=== PATIENT | female | born 1950 | race Caucasian/White ===

== ENCOUNTER → 2019-12-03 | Outpatient (CLI) | payer MEDICARE, OTHER ==
[~2019-12-03] MED LIST: ACET325 PO; AMIT10 PO; AMLO5 PO; ASPI325 PO; ASPI81EC PO; BUSP15 PO; CLOP75 PO; Co Q-10300 MG PO; FISH1000; GLIM2 PO; HYDACE5 PO; HYDCHL25 PO; Hydrocodone-Ap1 EA23 PO; LOSA50 PO; LOSHYD PO; METF500 PO; METF850 PO; METO100ER PO; METO50 PO; Norco 5-325 Ta1 EACH PO; OMEPRAZOLE MAGN20 MG PO; POTA10T PO; Plavix75 MG PO; Prednisone20 MG PO; RANI150 PO; ROSU10TA PO; ROSU5 PO; Red Yeast Rice600 MG PO; SITA100T2 PO; SUCR1 PO; TRAZ50 PO; Tizanidine HCl2 MG PO; ZOLP10 PO; ZOLP12.5 PO; Zithromax250 MG PO; Zofran Odt4 MG PO
[2019-12-03 10:24] LABS: BASOPHILS ABSOLUTE AUTO 0.05 K/mm3 (0.00-0.23); BASOPHILS PERCENT AUTO 0 % (0-2); EOSINOPHILS ABSOLUTE AUTO 0.07 K/mm3 (0.00-0.68); EOSINOPHILS PERCENT AUTO 1 % (0-6); Hematocrit 40.4 % (33.0-51.0); Hemoglobin 13.4 g/dL (11.5-16.0); IMMATURE GRAN ABSOLUTE AUTO 0.05 K/mm3 (0.00-0.10); IMMATURE GRAN PERCENT AUTO 0 % (0-1); LYMPHOCYTES ABSOLUTE AUTO 2.58 K/mm3 (0.84-5.20); LYMPHOCYTES PERCENT AUTO 21 % (21-46); MONOCYTES ABSOLUTE AUTO 0.83 K/mm3 (0.16-1.47); MONOCYTES PERCENT AUTO 7 % (4-13); Mean Corpuscular HGB Conc 33.2 g/dL (31.5-36.5); Mean Corpuscular Volume 84 fL (80-100); Mean Platelet Volume 11.8 fL (9.1-12.4); NEUTROPHILS ABSOLUTE AUTO 8.85 K/mm3 (1.96-9.15); NEUTROPHILS PERCENT AUTO 71 % (41-73); Platelet Count 280 K/mm3 (150-400); RDW Coefficient Variation 13.2 % (11.7-14.2); RDW Standard Deviation 40.2 fL (35.1-46.3); Red Blood Cell Count 4.79 M/mm3 (3.80-5.20); White Blood Cell Count 12.43 K/mm3 (4.00-11.30)
[2019-12-03 10:43] LABS: Alanine Aminotransfer (ALT/SGP 26 U/L (12-78); Albumin, Blood 4.5 g/dL (3.4-5.0); Albumin/Globulin Ratio 1.1 (0.8-1.8); Alk Phos 110 U/L (40-126); Anion Gap 11 mmol/L (6-16); Aspartate Aminotrans (AST/SGOT 22 U/L (12-37); Blood Urea Nitrogen 19 mg/dL (8-24); Bun/Creatinine Ratio 17.9 (12.0-20.0); CO2, Blood 29 mmol/L (21-32); Calcium, Blood 9.5 mg/dL (8.5-10.1); Chloride, Blood 95 mmol/L (98-108); Creatinine, Blood 1.06 mg/dL (0.40-1.00); Glomerular Filtration Rate 51 (60-); Glucose, Blood 223 mg/dL (70-99); Magnesium, Blood 1.5 mg/dL (1.6-2.4); Sodium, Blood 135 mmol/L (136-145); Thyroid Stimulating Hormone 1.185 uIU/mL (0.360-4.800); Total Protein, Blood 8.5 g/dL (6.4-8.2)
[2019-12-03 10:44] LABS: Troponin I <0.017 ng/mL (0.000-0.040)
== END | disposition home or self-care (01) ==
LOC: LAB SHORT 10:16 → LAB EV 10:16
PROVIDERS: Physician Assistant Medical
DX: R06.00 Dyspnea, unspecified (principal)
CPT/HCPCS: 80053; 83735; 84443; 84484; 85025

== ENCOUNTER 2020-07-10 12:04 | Day surgery (SDC) | payer MEDICARE, OTHER ==
[~2020-07-10] VITALS: Ht 167.6 cm; Wt 76.3 kg
[~2020-07-10 12:04] MED LIST changes: +ACET500 PO; +ALBU90OI INH; +ALPR.25 PO; +EUTHYROX75 MCG PO; +Hair, Skin & N1 EACH PO; +Isosorbide Mono30 MG PO; +Lopressor 50 mg50 MG PO; +NITR.4SL SL; +OMEP20ER PO; +Oretic 25 mg Ta25 MG PO; +SERT25 PO
--- NOTE | 2020-07-10 12:38 | NUR ---
07/10/20 Helene8 Jerilyn Madera 1 TRY RIGHT HAND VALVE
--- NOTE | 2020-07-10 15:25 | NUR ---
07/10/20 1525 Irais Kaye USED NACL 10ML FOR POLYP REMOVAL. PT. GIVEN ZOFRAN FOR RETCHING, PT. WAS SUCTIONED FOR SCANT CLEAR SECRETIONS. CHIN LIFT NEEDED FOR AIRWAY DURING PROCEDURE ESPECIALLY WHEN PT. WAS SUPINE. PT.'S DENTURES CAME OUT DURING PROCEDURE, PLACED IN A BOWL & THEN GIVEN BACK TO PT. WHEN SHE WOKE UP. DR. FERRARO IN ROOM. [place] [facility] [place].
== END 2020-07-10 15:21 | disposition home or self-care (01) ==
LOC: ORSCSDS 12:04
PROVIDERS: Internal Medicine Gastroenterology
PROC: 0DBK8ZX Excision of Ascending Colon, Via Natural or Artificial Opening Endoscopic, Diagnostic (ICD-10-PCS; principal; 2020-07-10 13:15)
PROC: 0DBL8ZX Excision of Transverse Colon, Via Natural or Artificial Opening Endoscopic, Diagnostic (ICD-10-PCS; principal; 2020-07-10 13:15)
DX: R10.9 Unspecified abdominal pain (principal); D12.3 Benign neoplasm of transverse colon; D12.2 Benign neoplasm of ascending colon; K57.30 Diverticulosis of large intestine without perforation or abscess without bleeding; K64.8 Other hemorrhoids; E11.9 Type 2 diabetes mellitus without complications; E78.5 Hyperlipidemia, unspecified; E03.9 Hypothyroidism, unspecified; N18.9 Chronic kidney disease, unspecified; K21.9 Gastro-esophageal reflux disease without esophagitis; Z79.899 Other long term (current) drug therapy
CPT/HCPCS: 82947; 88305; J2405; J2704; J7120

== ENCOUNTER 2023-02-21 00:35 | Inpatient (IN) | payer MEDICARE ==
[~2023-02-21] VITALS: Ht 160 cm; Wt 72.1 kg
[2023-02-21 01:52] LABS: BASOPHILS ABSOLUTE AUTO 0.01 K/mm3 (0.00-0.23); BASOPHILS PERCENT AUTO 0 % (0-2); EOSINOPHILS ABSOLUTE AUTO 0.03 K/mm3 (0.00-0.68); EOSINOPHILS PERCENT AUTO 1 % (0-6); Hematocrit 34.5 % (33.0-51.0); Hemoglobin 12.3 g/dL (11.5-16.0); IMMATURE GRAN ABSOLUTE AUTO 0.02 K/mm3 (0.00-0.10); IMMATURE GRAN PERCENT AUTO 1 % (0-1); LYMPHOCYTES ABSOLUTE AUTO 1.63 K/mm3 (0.84-5.20); LYMPHOCYTES PERCENT AUTO 39 % (21-46); MONOCYTES ABSOLUTE AUTO 0.76 K/mm3 (0.16-1.47); MONOCYTES PERCENT AUTO 18 % (4-13); Mean Corpuscular HGB 28.7 pg (26.0-34.0); Mean Corpuscular HGB Conc 35.7 g/dL (31.5-36.5); Mean Corpuscular Volume 80 fL (80-100); Mean Platelet Volume 11.6 fL (9.1-12.4); NEUTROPHILS ABSOLUTE AUTO 1.72 K/mm3 (1.96-9.15); NEUTROPHILS PERCENT AUTO 41 % (41-73); Platelet Count 233 K/mm3 (150-400); RDW Coefficient Variation 12.3 % (11.7-14.2); RDW Standard Deviation 35.8 fL (35.1-46.3); Red Blood Cell Count 4.29 M/mm3 (3.80-5.20); White Blood Cell Count 4.17 K/mm3 (4.00-11.30)
[2023-02-21 02:04] LABS: Albumin, Blood 3.1 g/dL (3.4-5.0); Albumin/Globulin Ratio 0.8 (0.8-1.8); Bilirubin, Total 0.6 mg/dL (0.1-1.0); Calcium, Blood 8.5 mg/dL (8.5-10.1); Creatinine, Blood 0.82 mg/dL (0.40-1.00); Globulin, Blood 3.8 g/dL (2.2-4.0); Potassium, Blood 3.1 mmol/L (3.5-5.5); Total Protein, Blood 6.9 g/dL (6.4-8.2)
[2023-02-21 02:53] LABS: Magnesium, Blood 1.5 mg/dL (1.6-2.4)
[2023-02-21] MEDS ORDERED: METFORMIN HCL500 M3 PO (04:22)
[2023-02-21 04:55] VITALS: BP 181/65
--- NOTE | 2023-02-21 05:48 | NUR ---
ADMIT NOTE 72 YR OLD FEMALE ADMITTED TO FLOOR FROM THE ED WITH DX OF HYPONATREMIA AND COVID POSITIVE. ED RN REPORTED PT HAVING TAKEN SELF COVID TEST A WEEK AGO AND THOUGHT IT WOULD PASS, BUT PT INSTEAD GOT WEAKER AND WEAKER. QUICK TEST IN ED REVEALED COVID POSITIVE. PLACED ON ENHANCED DROPLET PRECAUTIONS. IVF INFUSING SEE MAR FOR DETAILS. CALL LIGHT IN REACH. HOB ELEVATED. ON ROOM AIR. O2 SATS 90'S. WILL CONTINUE TO MONITOR
[2023-02-21 07:33] VITALS: BP 138/48
[2023-02-21 10:28] LABS: Bun/Creatinine Ratio 16.2 (12.0-20.0); Calcium, Blood 8.2 mg/dL (8.5-10.1); Creatinine, Blood 0.74 mg/dL (0.40-1.00); Potassium, Blood 3.5 mmol/L (3.5-5.5)
[2023-02-21 11:44] LABS: Source, Urine Clean Catch
[2023-02-21 12:08] LABS: Appearance, Urine Clear (Clear); Bilirubin, Urine Neg (Neg); Blood, Urine Neg (Neg); Color, Urine Yellow (P-Yellow); Glucose Qualitative, Urine Neg (Neg); Ketones, Urine Neg (Neg); Leukocyte Esterase, Urine Neg (Neg); Nitrite, Urine Neg (Neg); Protein, Urine Neg (Neg); Urobilinogen, Urine NORM (Normal)
[2023-02-21 13:55] LABS: BASOPHILS ABSOLUTE AUTO 0.01 K/mm3 (0.00-0.23); BASOPHILS PERCENT AUTO 0 % (0-2); EOSINOPHILS ABSOLUTE AUTO 0.03 K/mm3 (0.00-0.68); EOSINOPHILS PERCENT AUTO 1 % (0-6); Hemoglobin 12.4 g/dL (11.5-16.0); IMMATURE GRAN ABSOLUTE AUTO 0.01 K/mm3 (0.00-0.10); IMMATURE GRAN PERCENT AUTO 0 % (0-1); LYMPHOCYTES ABSOLUTE AUTO 1.96 K/mm3 (0.84-5.20); LYMPHOCYTES PERCENT AUTO 41 % (21-46); MONOCYTES ABSOLUTE AUTO 0.73 K/mm3 (0.16-1.47); MONOCYTES PERCENT AUTO 15 % (4-13); Mean Corpuscular HGB 28.2 pg (26.0-34.0); Mean Corpuscular HGB Conc 34.4 g/dL (31.5-36.5); Mean Corpuscular Volume 82 fL (80-100); Mean Platelet Volume 11.2 fL (9.1-12.4); NEUTROPHILS ABSOLUTE AUTO 2.01 K/mm3 (1.96-9.15); NEUTROPHILS PERCENT AUTO 42 % (41-73); Platelet Count 239 K/mm3 (150-400); RDW Coefficient Variation 12.5 % (11.7-14.2); RDW Standard Deviation 37.7 fL (35.1-46.3); White Blood Cell Count 4.75 K/mm3 (4.00-11.30)
[2023-02-21 14:20] LABS: Albumin, Blood 3.4 g/dL (3.4-5.0); Albumin/Globulin Ratio 0.9 (0.8-1.8); Bilirubin, Total 0.4 mg/dL (0.1-1.0); Bun/Creatinine Ratio 14.8 (12.0-20.0); Calcium, Blood 8.8 mg/dL (8.5-10.1); Creatinine, Blood 0.88 mg/dL (0.40-1.00); Globulin, Blood 3.6 g/dL (2.2-4.0); Potassium, Blood 3.1 mmol/L (3.5-5.5)
[2023-02-21 15:52] VITALS: BP 178/61
--- NOTE | 2023-02-21 18:30 | NUR ---
SHIFT SUMMARY- PT IS A/O, PLESANT AND COOEPRATIVE. ISOLATION WAS MAINTAINED THIS SHIFT. SHE IS EATING AND DRINKING WELL. O2 SATS HAVE MAINTAINED ON ROOM AIR. HER BED IS IN THE LOW POSITON AND CALL LIGHT IS WITHIN REACH.
[2023-02-21 18:39] VITALS: BP 145/55
[2023-02-21 19:08] VITALS: BP 150/47
[2023-02-22 02:22] VITALS: BP 139/60
--- NOTE | 2023-02-22 04:07 | NUR ---
SHIFT SUMMARY PATIENT IS ALERT AND ORIENTED. PATIENT HAS HAD NO ACUTE EVENTS THIS SHIFT. PATIENT HAS BEEN ON ROOM AIR ALL SHIFT. PATIENT HAS HAD NO COMPLAINTS OF PAIN, NAUSEA, SOB OR VOMITTING THIS SHIFT. PATIENT HAS BEEN RESTING COMFORTABLY ALL SHIFT. BED IN LOCKED AND LOWEST POSITION. CALL LIGHT IN PLACE. WILL MONITOR UNTIL SHIFT CHANGE.
[2023-02-22 05:19] LABS: BASOPHILS ABSOLUTE AUTO 0.02 K/mm3 (0.00-0.23); BASOPHILS PERCENT AUTO 0 % (0-2); EOSINOPHILS ABSOLUTE AUTO 0.08 K/mm3 (0.00-0.68); EOSINOPHILS PERCENT AUTO 2 % (0-6); Hematocrit 34.1 % (33.0-51.0); Hemoglobin 11.5 g/dL (11.5-16.0); IMMATURE GRAN ABSOLUTE AUTO 0.02 K/mm3 (0.00-0.10); IMMATURE GRAN PERCENT AUTO 0 % (0-1); LYMPHOCYTES PERCENT AUTO 39 % (21-46); MONOCYTES ABSOLUTE AUTO 0.96 K/mm3 (0.16-1.47); MONOCYTES PERCENT AUTO 18 % (4-13); Mean Corpuscular HGB 27.8 pg (26.0-34.0); Mean Corpuscular HGB Conc 33.7 g/dL (31.5-36.5); Mean Corpuscular Volume 83 fL (80-100); Mean Platelet Volume 11.4 fL (9.1-12.4); NEUTROPHILS ABSOLUTE AUTO 2.16 K/mm3 (1.96-9.15); NEUTROPHILS PERCENT AUTO 40 % (41-73); Platelet Count 229 K/mm3 (150-400); RDW Coefficient Variation 12.7 % (11.7-14.2); RDW Standard Deviation 38.5 fL (35.1-46.3); Red Blood Cell Count 4.13 M/mm3 (3.80-5.20); White Blood Cell Count 5.34 K/mm3 (4.00-11.30)
[2023-02-22 05:49] LABS: Bilirubin, Total 0.4 mg/dL (0.1-1.0); Bun/Creatinine Ratio 14.6 (12.0-20.0); Calcium, Blood 8.6 mg/dL (8.5-10.1); Creatinine, Blood 0.96 mg/dL (0.40-1.00); Globulin, Blood 3.1 g/dL (2.2-4.0); Potassium, Blood 3.8 mmol/L (3.5-5.5); Total Protein, Blood 6.1 g/dL (6.4-8.2)
[2023-02-22 07:39] VITALS: BP 131/52
[2023-02-22 17:14] VITALS: BP 143/44
--- NOTE | 2023-02-22 19:42 | NUR ---
SUMMARY- PT A/O X4, USES CALL LIGHT. [place] [facility] [place] [facility] [facility] [place]. SLOW, FEELS WEAK AND TIRED. HAS A DECREASED APPETITE AND PERIODS OF NAUSEA. STATES SHE HAS A HEADACHE FREQ. MEDICATED WITH ZOFRQN AND TYLENOL THIS AM WHICH WAS HELPFUL AND PT NAPPED. PT'S LUNGS CLEAR, NO S/S OF DISTRESS. PLAN FOR PT TO GO HOME WITH DAUGHTER TO HELP HER LIKELY TOMORROW. PT HAS TELE SB 50-60.
[2023-02-22 19:44] VITALS: BP 168/57
[2023-02-23 04:03] VITALS: BP 152/55
[2023-02-23 05:02] LABS: BASOPHILS ABSOLUTE AUTO 0.01 K/mm3 (0.00-0.23); BASOPHILS PERCENT AUTO 0 % (0-2); EOSINOPHILS ABSOLUTE AUTO 0.07 K/mm3 (0.00-0.68); EOSINOPHILS PERCENT AUTO 2 % (0-6); Hematocrit 35.5 % (33.0-51.0); IMMATURE GRAN ABSOLUTE AUTO 0.02 K/mm3 (0.00-0.10); IMMATURE GRAN PERCENT AUTO 0 % (0-1); LYMPHOCYTES ABSOLUTE AUTO 2.43 K/mm3 (0.84-5.20); LYMPHOCYTES PERCENT AUTO 53 % (21-46); MONOCYTES ABSOLUTE AUTO 0.54 K/mm3 (0.16-1.47); MONOCYTES PERCENT AUTO 12 % (4-13); Mean Corpuscular HGB 27.9 pg (26.0-34.0); Mean Corpuscular HGB Conc 33.8 g/dL (31.5-36.5); Mean Corpuscular Volume 83 fL (80-100); NEUTROPHILS ABSOLUTE AUTO 1.54 K/mm3 (1.96-9.15); NEUTROPHILS PERCENT AUTO 34 % (41-73); Platelet Count 230 K/mm3 (150-400); RDW Standard Deviation 39.1 fL (35.1-46.3); White Blood Cell Count 4.61 K/mm3 (4.00-11.30)
[2023-02-23 05:23] LABS: Albumin, Blood 3.2 g/dL (3.4-5.0); Albumin/Globulin Ratio 0.8 (0.8-1.8); Bilirubin, Total 0.4 mg/dL (0.1-1.0); Bun/Creatinine Ratio 15.6 (12.0-20.0); Calcium, Blood 8.8 mg/dL (8.5-10.1); Creatinine, Blood 0.9 mg/dL (0.40-1.00); Globulin, Blood 3.9 g/dL (2.2-4.0); Potassium, Blood 3.5 mmol/L (3.5-5.5); Total Protein, Blood 7.1 g/dL (6.4-8.2)
--- NOTE | 2023-02-23 05:38 | NUR ---
PATIENT A&OX4, OOB INDEPENDENTLY IN ROOM. COMPLAINTS OF ONGOING HEADACHE WHICH HAS WAXED AND WANED SINCE SHE BEGAN FEELING POORLY. APAP GIVEN WITH GOOD RESULT. LUNG SOUNDS CLEAR, DIM IN THE BASES. NO BM SINCE MONDAY. HOPING FOR DISCHARGE TODAY.
[2023-02-23 07:45] VITALS: BP 125/43
[2023-02-23] MEDS ORDERED: ONDA4ODT MM (12:42)
--- NOTE | 2023-02-23 14:29 | NUR ---
DISCHARGE SUMMARY: PT DISCHARGED HOME TODAY. PT EDUCATED ON DISCHARGE INSTRUCTIONS, MEDICATIONS. PT ASSISTED WITH GETTING DRESSED, PACKING UP HER BELONGINGS. PT ESCORTED TO POV VIA WC WITH HER FRIEND WHO PICKED HER UP. FRIEND EDUCATED ON CONTACT PRECAUTIONS AND ADVISED TO WEAR A MASK WHILE DRIVING FRIEND.
== END 2023-02-23 14:02 | disposition home or self-care (01) | DRG 640 ==
LOC: ER 00:35 → MEDS 00:36
PROVIDERS: Emergency Medicine; Family Medicine; ADMIT Internal Medicine
DX: E87.1 Hypo-osmolality and hyponatremia (principal); U07.1 COVID-19; E11.9 Type 2 diabetes mellitus without complications; I10 Essential (primary) hypertension; K21.9 Gastro-esophageal reflux disease without esophagitis; I25.10 Atherosclerotic heart disease of native coronary artery without angina pectoris; I65.29 Occlusion and stenosis of unspecified carotid artery; Z88.8 Allergy status to other drugs, medicaments and biological substances; Z79.890 Hormone replacement therapy; Z79.84 Long term (current) use of oral hypoglycemic drugs; Z79.899 Other long term (current) drug therapy; Z90.49 Acquired absence of other specified parts of digestive tract; Z90.710 Acquired absence of both cervix and uterus; Z98.890 Other specified postprocedural states; Z87.891 Personal history of nicotine dependence
CPT/HCPCS: 36415; 71045; 80048; 80053; 81003; 82947; 83735; 83880; 85025; 96372; 96374; 96375; 96376; 99285-25; A9270; G0378; J1650; J2405; J3475; J3480; J7030; J7050

== ENCOUNTER 2023-06-29 13:21 | Day surgery (SDC) | payer MEDICARE ==
[~2023-06-29] VITALS: Ht 165.1 cm; Wt 76.3 kg
[~2023-06-29 13:21] MED LIST changes: +METFORMIN HCL500 M3 PO; +ONDA4ODT MM
[2023-06-29 17:07] VITALS: BP 111/63
== END 2023-06-29 17:32 | disposition home or self-care (01) ==
LOC: ORSCSDS 13:21
PROVIDERS: Internal Medicine Gastroenterology
PROC: 0DBH8ZX Excision of Cecum, Via Natural or Artificial Opening Endoscopic, Diagnostic (ICD-10-PCS; principal; 2023-06-29 14:45)
PROC: 0DBL8ZX Excision of Transverse Colon, Via Natural or Artificial Opening Endoscopic, Diagnostic (ICD-10-PCS; principal; 2023-06-29 14:45)
DX: R10.84 Generalized abdominal pain (principal); Z86.010 Personal history of colon polyps; D12.3 Benign neoplasm of transverse colon; D12.0 Benign neoplasm of cecum; K57.30 Diverticulosis of large intestine without perforation or abscess without bleeding; K64.4 Residual hemorrhoidal skin tags; K21.9 Gastro-esophageal reflux disease without esophagitis; E11.22 Type 2 diabetes mellitus with diabetic chronic kidney disease; I12.9 Hypertensive chronic kidney disease with stage 1 through stage 4 chronic kidney disease, or unspecified chronic kidney disease; N18.2 Chronic kidney disease, stage 2 (mild); E03.9 Hypothyroidism, unspecified; E78.5 Hyperlipidemia, unspecified; Z79.84 Long term (current) use of oral hypoglycemic drugs; Z79.899 Other long term (current) drug therapy; G47.33 Obstructive sleep apnea (adult) (pediatric); Z79.02 Long term (current) use of antithrombotics/antiplatelets
CPT/HCPCS: 82947; 88305; J0461; J2001; J2405; J2704; J7120; Q9968